=== PATIENT | male | born 1935 | race Caucasian/White ===

== ENCOUNTER 2018-02-22 08:24 | Emergency (ER) | payer OTHER ==
--- NOTE | 2018-02-22 08:39 | CPEKG ---
Heart Rate: 57 RR Interval: 1053 P-R Interval: 208 QRSD Interval: 140 QT Interval: 456 QTC Interval: 444 P [place]: 74 QRS [place]: -67 T Wave [place]: 19 EKG Severity - ABNORMAL ECG - EKG Impression: SINUS RHYTHM EKG Impression: RBBB AND LAFB Electronically Signed By: Shirlene Zhao 22-Feb-2018 14:47:10
[2018-02-22] MEDS ORDERED: ONDANSETRON 4 MG/2 ML VIAL IVP ONE (09:10)
[2018-02-22] MEDS ORDERED: NS 500 ML IV ONE (09:11)
[2018-02-22 09:14] LABS: PLATELET COUNT 231 10^3/uL (150-400)
--- NOTE | 2018-02-22 10:17 | EDPHY ---
H & P Time Seen by Provider: 02/22/18 08:58 HPI/ROS: CHIEF COMPLAINT: Bizarre feeling, nausea HISTORY OF PRESENT ILLNESS: 82-year-old male presents with a bizarre feeling and with nausea. This morning when he awoke, he had a bizarre feeling, like he was coming down with an illness, but he is unable to describe this feeling further. He also had slight nausea. He then developed sweatiness. The sweatiness has resolved. He continues to have some of this bizarre feeling. On repeated questioning, he is unable to describe this feeling further. He had a similar episode 9 months ago and was admitted to [facility]. No etiology found. He specifically denies symptoms such as dizziness, chest pain, shortness of breath, pain. REVIEW OF SYSTEMS: complete 10 point ROS negative except at noted in the HPI Past Medical/Surgical History: Hypertension Social History: Smoking Status: Never smoked Physical Exam: General Appearance: Alert, pleasant Eyes: Pupils equal and round, no conjunctival pallor or injection ENT, Mouth: Mucous membranes moist Neck: Normal inspection Respiratory: Lungs are clear to auscultation Cardiovascular: Regular rate and rhythm Gastrointestinal: Abdomen is soft and nontender Neurological: A&O, nonfocal, normal gait Skin: Warm and dry, no rash Extremities: Nontender, no pedal edema Psychiatric: Mood and affect normal Constitutional: Initial Vital Signs Temperature (C) 36.8 C 02/22/18 08:24 Heart Rate 59 L 02/22/18 08:24 Respiratory Rate 16 02/22/18 08:24 Blood Pressure 169/102 H 02/22/18 08:24 O2 Sat (%) 98 02/22/18 08:24 O2 Delivery Mode Room Air Allergies/Adverse Reactions: No Known Allergies Allergy (Unverified 02/22/18 08:37) Home Medications: Medication Instructions Recorded Atorvastatin Calcium 02/22/18 Lisinopril 02/22/18 Medical Decision Making - Diagnostics EKG Interpretation: terpreted by me reveals sinus rhythm, rate 57, right bundle branch block, no ST or T segment changes. Interpretation: Abnormal EKG ED Course/Re-evaluation: This patient presents with an unusual sensation that is apparently difficult to describe. Vital signs and physical exam are normal. Stat EKG reveals no evidence of ischemia or dysrhythmia. IV normal saline 500 mL given in case of dehydration causing symptoms. I observed him in the emergency department and upon discharge, he felt back to normal. Able to walk with a steady gait and was asymptomatic. The etiology of his symptoms is unclear. However, after careful consideration, I find no evidence of acute coronary syndrome, TIA, infection or other serious etiology. I feel that he is safe and stable for discharge. Differential Diagnosis: Altered mental status including but not limited to hypoglycemia, infectious process, electrolyte abnormality, head injury, CVA, and intoxicants. - Data Points Laboratory Results: Laboratory Results 02/22/18 08:05 02/22/18 08:05 Medications Given: Discontinued Medications Sodium Chloride (Ns) 500 mls @ 1,000 mls/hr IV EDNOW ONE PRN Reason: Protocol Stop: 02/22/18 09:40 Last Admin: 02/22/18 09:49 Dose: 500 mls Ondansetron HCl (Zofran) 4 mg IVP EDNOW ONE Stop: 02/22/18 09:11 Last Admin: 02/22/18 09:49 Dose: 4 mg Departure - Departure Disposition: Home, Routine, Self-Care Clinical Impression: Malaise Condition: Good Instructions: Weakness (ED), Lightheadedness (ED) Additional Instructions: Please return for worsening symptoms, any concerns. Referrals: MADELINE RIOS MD [Primary Care Provider] - 2-3 days without fail
[2018-02-22 11:35] VITALS: BP 132/80
== END 2018-02-22 11:40 | disposition home or self-care (01) ==
DX: R53.81 Other malaise (principal); I10 Essential (primary) hypertension; E86.9 Volume depletion, unspecified
CPT/HCPCS: 93005; 96361; 96374; 99284; J2405

== ENCOUNTER 2018-04-03 00:17 | Inpatient (IN) | payer OTHER, BC ==
--- NOTE | 2018-04-03 01:00 | CPEKG ---
Heart Rate: 55 RR Interval: 1091 P-R Interval: 200 QRSD Interval: 134 QT Interval: 468 QTC Interval: 448 P [place]: 70 QRS [place]: -62 T Wave [place]: 12 EKG Severity - ABNORMAL ECG - EKG Impression: SINUS RHYTHM EKG Impression: RBBB AND LAFB Electronically Signed By: Makayla Lopez 04-Apr-2018 05:09:10
--- NOTE | 2018-04-03 02:33 | EDPHY ---
H & P Stated Complaint: dizziness Time Seen by Provider: 04/03/18 02:30 HPI/ROS: HPI The patient presents with episodes of dizziness. Tonight, when he was going to bed, he felt off. He went to the living room and sat up until he was feeling better. Then he went to bed though believes he fainted several times and then called 911. He is brought in by ambulance from independent living facility. He has been checking his vital signs at home and knows that his heart rate has been as low as 35 and his blood pressures have been elevated as high as 190 systolic. He takes lisinopril since 2012 for hypertension. As he now recalls that he has had several of these episodes, 1 in February that brought him into the emergency department a normal workup, and 1 1 year ago. They are becoming more frequent. They are not associated with shortness of breath or chest pain. He does report over the last 1-2 months he has had swelling of his left leg.. REVIEW OF SYSTEMS Constitutional: No fever, no chills. Eyes: No discharge. ENT: No sore throat. Cardiovascular: No chest pain, no palpitations. Respiratory: No cough, no shortness of breath. Gastrointestinal: No abdominal pain, no vomiting. Genitourinary: No hematuria. Musculoskeletal: No back pain. Skin: No rashes. Neurological: No headache. 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 Garcia at [facility] Hx: Lives in independent living facility PHYSICAL General Appearance: Alert, no distress Eyes: Pupils equal and round no pallor or injection ENT, Mouth: Mucous membranes moist Respiratory: There are no retractions, lungs are clear to auscultation Cardiovascular: Regular rate and rhythm Gastrointestinal: Abdomen is soft and non-tender, no masses, bowel sounds normal Neurological: A&O, moves all extremities Skin: Warm and dry, no rashes Musculoskeletal: Neck is supple non tender Extremities: symmetrical, full range of motion , left lower extremity with pitting edema Psychiatric: Patient is oriented X 3, there is no agitation Source: Patient, EMS, Old records Exam Limitations: No limitations - Personal History Current Tetanus Diphtheria and Acellular Pertussis (TDAP): Yes - Medical/Surgical History Hx Asthma: No Hx Chronic Respiratory Disease: No Hx Diabetes: No Hx Cardiac Disease: No Hx Renal Disease: No Hx Cirrhosis: No Hx Alcoholism: No Hx HIV/AIDS: No Hx Splenectomy or Spleen Trauma: No Other PMH: HTN,Chol. high, dizziness - Social History Smoking Status: Former smoker Constitutional: Initial Vital Signs Temperature (C) 36.7 C 04/03/18 00:33 Heart Rate 54 L 04/03/18 00:33 Respiratory Rate 18 04/03/18 00:33 Blood Pressure 163/86 H 04/03/18 00:33 O2 Sat (%) 97 04/03/18 00:33 O2 Delivery Mode Room Air O2 (L/minute) 96 Allergies/Adverse Reactions: No Known Allergies Allergy (Unverified 04/03/18 00:31) Home Medications: Medication Instructions Recorded Atorvastatin Calcium 02/22/18 Lisinopril 02/22/18 Coumadin 04/03/18 Medical Decision Making - Diagnostics EKG Interpretation: EKG: Complete interpretation has been separately recorded in the [facility] archive. Summary impression: Right bundle-branch block and left anterior fascicular block Imaging Results: Chest x-ray two view shows no cardiomegaly, no infiltrate, interpreted by me, radiology interpretation is pending. Imaging: I viewed and interpreted images myself Differential Diagnosis: This is an 82-year-old man with history of hypertension and DVT on Coumadin who presents from home brought in by ambulance with episodes becoming more frequent involving malaise, dizziness, loss of consciousness. On the awake overnight monitor, he is noted to have intermittent bradycardia. He appears to be in a heart block and then returning to a normal sinus rhythm. I suspect this is the cause of his symptoms. In the emergency department, he was kept on telemetry monitoring. Labs were checked and were unremarkable including a troponin. Because of his left leg swelling DVT study was performed. DVT study was normal. He was admitted to the hospitalist and the case was discussed with Dr. Paz. - Data Points Laboratory Results: Laboratory Results 04/03/18 00:10 04/03/18 00:10 04/03/18 04/03/18 04/03/18 00:10 00:10 00:10 WBC RBC Hgb Hct MCV MCH MCHC RDW Plt Count PT 25.4 SEC H SEC (12.0-15.0) INR 2.31 H (0.83-1.16) Sodium Potassium Chloride Carbon Dioxide Anion Gap BUN Creatinine Estimated GFR Glucose Calcium Phosphorus 3.9 mg/dL mg/dL (2.5-4.5) Magnesium 2.2 mg/dL mg/dL (1.6-2.3) Troponin I < 0.012 ng/mL ng/mL (0.000-0.034) NT-Pro-B Natriuret Pep 151 pg/mL pg/mL (0-450) 04/03/18 04/03/18 00:10 00:10 WBC 6.38 10^3/uL 10^3/uL (3.80-9.50) RBC 4.43 10^6/uL 10^6/uL (4.40-6.38) Hgb 13.8 g/dL g/dL (13.7-17.5) Hct 40.3 % % (40.0-51.0) MCV 91.0 fL fL (81.5-99.8) MCH 31.2 pg pg (27.9-34.1) MCHC 34.2 g/dL g/dL (32.4-36.7) RDW 13.6 % % (11.5-15.2) Plt Count 214 10^3/uL 10^3/uL (150-400) PT INR Sodium 144 mEq/L mEq/L (135-145) Potassium 4.0 mEq/L mEq/L (3.3-5.0) Chloride 108 mEq/L mEq/L (97-110) Carbon Dioxide 26 mEq/l mEq/l (22-31) Anion Gap 10 mEq/L mEq/L (8-16) BUN 18 mg/dL mg/dL (7-23) Creatinine 1.1 mg/dL mg/dL (0.7-1.3) Estimated GFR > 60 Glucose 90 mg/dL mg/dL (70-100) Calcium 9.3 mg/dL mg/dL (8.5-10.4) Phosphorus Magnesium Troponin I NT-Pro-B Natriuret Pep Medications Given: Sodium Chloride (Ns) 1,000 mls @ 75 mls/hr IV CONT CARMELINA Stop: 09/30/18 03:14 Last Admin: 04/03/18 04:55 Dose: 1,000 mls Cefazolin Sodium/Dextrose (Ancef 2 Gm) 100 mls @ 200 mls/hr IV ONCALL ONE PRN Reason: Protocol Stop: 04/03/18 08:11 Last Admin: 04/03/18 08:00 Dose: Not Given Lorazepam (Ativan Injection) 0.5 mg IVP Q4HRS PRN PRN Reason: Anxiety, Unable to Take PO Stop: 09/30/18 06:32 Last Admin: 04/03/18 06:42 Dose: 0.5 mg Discontinued Medications Bacitracin (Bacitracin 1000 Ml Irrigation) 50,000 units IRR ONCALL ONE Stop: 04/03/18 07:43 Last Admin: 04/03/18 08:00 Dose: Not Given Phytonadione 10 mg/ Sodium (Chloride) 51 mls @ 204 mls/hr IV ONCE ONE Stop: 04/03/18 05:07 Last Admin: 04/03/18 05:24 Dose: 51 mls Sodium Chloride (Ns) 1,000 mls @ 0 mls/hr IV ONCALL ONE PRN Reason: As Directed Stop: 04/03/18 07:15 Last Admin: 04/03/18 07:55 Dose: Not Given Sodium Chloride (Ns) 1,000 mls @ 0 mls/hr IV ONCALL ONE PRN Reason: As Directed Stop: 04/03/18 07:43 Last Admin: 04/03/18 08:00 Dose: Not Given Midazolam HCl (Versed) 2 mg IVP ONCE ONE Stop: 04/03/18 07:01 Last Admin: 04/03/18 07:55 Dose: Not Given Departure - Departure Disposition: [facility] Clinical Impression: Arrhythmia, Dizziness Condition: Fair
[2018-04-03 02:48] LABS: INR 2.31 (0.83-1.16); PROTIME(PATIENT) 25.4 SEC (12.0-15.0)
[2018-04-03] MEDS ORDERED: ONDANSETRON 4 MG/2 ML VIAL IVP PRN (03:09)
[2018-04-03] MEDS ORDERED: HYDROCODONE/APAP 5/325 TAB PO PRN (03:09)
[2018-04-03] MEDS ORDERED: NS 1,000 ML IV SCH (03:15)
[2018-04-03] MEDS ORDERED: PHYTONADIONE 10 MG in NS 50 ML IV ONE (04:53)
[2018-04-03] MEDS ORDERED: ATROPINE SULFATE 1 MG/10 ML SYR IVP PRN (05:01)
[2018-04-03] MEDS ORDERED: D50W 25 GM/50 ML VIAL IVP PRN (05:21)
[2018-04-03 05:55] LABS: PLATELET COUNT 208 10^3/uL (150-400)
[2018-04-03] MEDS ORDERED: LORazepam 2 MG/ML INJ IVP PRN (06:33)
[2018-04-03] MEDS ORDERED: MIDAZOLAM 2 MG/2 ML VIAL ONE ×2 (06:43→07:37)
--- NOTE | 2018-04-03 06:43 | GHP ---
[f rep st] HISTORY AND PHYSICAL DATE OF ADMISSION: 04/03/2018 SOURCE: Patient provides history, appears reliable. EMR was reviewed and case discussed with ED pro vider as well as the patient's daughter and Dr. Junior with Cardiology. CHIEF COMPLAINT: Syncope. HISTORY OF PRESENT ILLNESS: This is a very pleasant 82-year-old gentleman with a past medical histor y significant for HTN, HLD, recurrent DVT in 2011 and 2015, on chronic anticoagulation with Coumadin, who presents to the emergency department today from his independent living apartment with complaints of syncopal and presyncopal episodes. The patient reports that he was trying to go to sleep and he felt significantly lightheaded and reports that he fainted. He has been monitoring his blood pressur es and his heart rates on an outpatient basis, and has noted a heart rate as low as the 30s and blood pressures systolically as high as 190s. He denies any associated chest pain, palpitations, or short ness of breath. He does feel some subjective fevers and flushing and chills. He was in the emergenc y department in February 2018. The patient has been experiencing some presyncopal type episodes and jus t recently underwent outpatient cardiac monitoring, which the patient reports he was due to follow up with PCP in 2 days for results. He is typically followed by Dr. Garcia at [facility] in [place]. The patient denies any history of known CHF. In the emergency department, the patient did have intermittent episodes of bradycardia into the 30s, with what appeared to be second-degree block on the court recording monitor. Shortly after arrival to the PCU floor, the patient had intermittent drops in heart rate to the 30s from the 50s with symptoms. A dditionally, patient has had a few episodes of third-degree heart block and 1 witnessed episode of se izure activity and hypoxia during a 12-second pause. The patient currently denies any chest pain, sh ortness of breath, palpitations, but currently awake, alert, and oriented x3. His daughter, who live s locally, has been notified. REVIEW OF SYSTEMS: Negative except as noted above. ALLERGIES: No known drug allergies. HOME MEDICATIONS: Coumadin, atorvastatin, lisinopril, and 81 mg aspirin. PAST MEDICAL HISTORY: Significant for HTN, HLD, recurrent DVT in 2011 and 2016 in left lower extremi ty, currently on Coumadin. PAST SURGICAL HISTORY: Significant for appendectomy, hemorrhoidectomy, and bilateral cataract extrac tion with lens placement. FAMILY HISTORY: Mother and father with history of atherosclerosis. He has 3 children who are all he althy. SOCIAL HISTORY: Patient lives in independent living apartment at [place]. He does not smoke or ut ilize any illicit drugs or marijuana. He quit smoking in 1967. He drinks a glass of wine every othe r weekend. COR STATUS: Limited. Discussed with the patient while RN at bedside. The patient does not want any heroic measures and when clarified he does not want CPR. He does not want to be intubated. He is a menable to pacemaker pads and pacemaker placement as well as medical resuscitation, but no compressio ns. PHYSICAL EXAMINATION: VITAL SIGNS: Upon arrival to the emergency department, blood pressure 163/86, heart rate 54, respiratory rate 18, O2 saturation 97% on room air, with a temperature of 36.7. Curr ent vitals available, blood pressure 175/80, heart rate 33, variable to 55, O2 saturation 94% on room air, with a respiratory rate of 19, temperature 36.6. GENERAL: No acute distress. Pleasant, elder ly, adult gentleman is resting comfortably in bed. Appears slightly younger than stated age. HEAD: Normocephalic, atraumatic. EYES: Extraocular muscles are intact. Pupils equal, round, react to li ght bilaterally and symmetric. No scleral icterus or conjunctival injection. ENT: Mucous membranes appear moist. No oropharyngeal erythema or exudates. No nasal discharge. NECK: Supple, trachea m idline. CV: Bradycardic. No murmurs, rubs, or gallops appreciated. RESPIRATORY: Unlabored breath ing. Lungs are clear to auscultation bilaterally. No wheezes, rales, or rhonchi. ABDOMEN: Positive bowel sounds. Soft, nontender to palpation. No rebound, guarding, or masses appreciated. : No suprapubic tenderness to palpation. No Tello catheter in place. EXTREMITIES: Patient with 1 to 2+ pitting edema on the left greater than the right lower extremity, trace on the right. No calf tender ness. Patient with 1+ pedal pulses bilaterally and symmetric. NEURO: Grossly nonfocal. No facial drooping. Patient awake, alert, and oriented x3. PSYCH: Thought process, content, and questions ar e all appropriate. During the interview, the patient did have an episode of symptomatic bradycardia, where he had eviden ce of tonic-clonic activity and was unresponsive for approximately [address] recording monitor does show that patient went into complete heart block for about 12 seconds. Patient's bedsi de O2 sat also decreased down to 85% with rapid resolution, along with patient's mentation. LABORATORY STUDIES: WBC 6.3, H and H 13.8 and 40.3, MCV of 91.0, platelet count of 214. PT is 25.4, INR is 2.31. Sodium 144, potassium 4.0, chloride 108, CO2 is 26, anion gap 10, BUN 18, creatinine i s 1.1, GFR greater than 60, glucose 90, calcium 9.3. Troponin negative. BTNP 151, phosphorus 3.9, m agnesium 2.2. Heart rate 55, sinus rhythm, right bundle branch block and left anterior fascicular block. Telemetry monitoring showing that patient did have some episodes of second-degree heart block. Telemetry stri p in PCU has been showing intermittent episodes of third-degree heart block. Left venous duplex is showing wall thickening on the long femoral vein consistent with prior DVT and no acute thrombus. ASSESSMENT AND PLAN: A very pleasant 82-year-old gentleman who presents with complaints of syncopal and presyncopal episode at home. 1. Heart block. Patient has been with significant bradycardia down to the 30s as well as up to 12 s econds of complete heart block, symptomatic. He will have pacer pads put in place. I did discuss wi th the patient regarding his advanced directives and wishes. He does not want for cardiopulmonary re suscitation or intubation, but is amenable to consideration for pacer external and permanent as well. I contacted Cardiology, Dr. Junior, and discussed the case. She has requested the patient remain not jaya by mouth, receive vitamin K for his history of Coumadin therapy for deep vein thrombosis. Also discussed with her there is low suspicion for a pulmonary embolism. At this point, patient has been completely asymptomatic and has been therapeutic and compliant with his anticoagulation. He has not complained of any dyspnea or had any hypoxia, except for following an episode of pause and seizure-ty pe activity while I was at bedside. If patient continues to have a repeat of episodes, will plan to put in a temporary pacer. Otherwise, hopefully patient can have a permanent pacer placed early this morning with Dr. Batista. I did contact patient's daughter, Too, who will be coming to the [facility] shortly. I did review with her also patient's advanced directive wishes. 2. Benign essential hypertension. Blood pressures are slightly elevated, but at this time will not treat. 3. Chronic medical issues: a. Hyperlipidemia. Holding statin while nothing by mouth. b. History of recurrent deep vein thrombosis. Patient receiving vitamin K to reverse his INR at thi s time. Last deep vein thrombosis known was remotely in 2016. Patient has been therapeutic and comp liant with medications. 4. Fluid, electrolytes, nutrition: Patient received some gentle intravenous fluid hydration. Elect rolyte monitoring and replacement if needed. Nothing by mouth status as above. 5. COR status is limited. No cardiopulmonary resuscitation, no intubation. Patient amenable to med ications and pacing. 6. Prophylaxis: Sequential compression devices, reversing Coumadin therapy as noted above, but INR is therapeutic. DISPOSITION: Patient admitted to observation status initially, which we will now change to inpatient status given acuity of patient's cardiac condition. Patient will be transferred to the ICU for clos e cardiac monitoring should external pacing be required. /[id number]/MODL
[2018-04-03] MEDS ORDERED: MIDAZOLAM 2 MG/2 ML VIAL IVP ONE (07:00)
[2018-04-03] MEDS ORDERED: NS 1,000 ML IV ONE ×2 (07:14→07:42)
[2018-04-03] MEDS ORDERED: BACITRACIN IRRIGATION/NS 50,000 UNITS/1,000 ML BTL IRR ONE ×2 (07:14→07:42)
--- NOTE | 2018-04-03 07:35 | PDHPUP ---
History & Physical Update H&P update statement: This history and physical update is based on an assessment of the patient which was completed after admission or registration (within 24 hours), but prior to the surgery/procedure. H&P update: H&P reviewed & patient examined, no change in patient's condition since H&P completed
[2018-04-03] MEDS ORDERED: IOPAMIDOL (ISOVUE-300) 50 ML VIAL ONE (07:36)
--- NOTE | 2018-04-03 07:36 | PDPROPOC ---
Sedation Plan of Care Sedation Plan of Care: vital signs stable, mental status noted, patient educated of risks, benefits, alternatives, patient can tolerate sedation ASA Classification: ASA 3 Planned drugs: fentanyl, midazolam Mallampati Score: Class 3 Mallampati Reference Image: Patient passed 3-3-2 rule?: Yes
[2018-04-03] MEDS ORDERED: fentaNYL 100 MCG/2 ML INJ ONE (07:37)
[2018-04-03] MEDS ORDERED: BUPIVACAINE 0.5% 30 ML SDV ONE (07:37)
[2018-04-03] MEDS ORDERED: LIDOCAINE 1% 300 MG/30 ML SDV ONE (07:37)
[2018-04-03] MEDS ORDERED: LIDO/EPI 1% **for epidural** 30 ML SDV ONE (07:37)
[2018-04-03] MEDS ORDERED: ceFAZolin 2 GM/DEXTROSE 100 ML IV ONE (07:42)
--- NOTE | 2018-04-03 09:49 | CPEKG ---
Heart Rate: 60 RR Interval: 1000 P-R Interval: 136 QRSD Interval: 130 QT Interval: 448 QTC Interval: 448 QRS [place]: -53 T Wave [place]: 10 EKG Severity - ABNORMAL ECG - EKG Impression: ATRIAL-PACED RHYTHM EKG Impression: RBBB AND LAFB Electronically Signed By: Chavez Ramos 03-Apr-2018 11:45:33
--- NOTE | 2018-04-03 10:10 | GCON ---
[f rep st] CONSULTATION CARDIOLOGY CONSULT DATE OF CONSULTATION: 04/03/2018 PRIMARY SHEEP CLIPPER: Dr. Mary Garcia PRIMARY CARE: Dr. Carly Stringer CHIEF COMPLAINT: Syncope and complete heart block. HISTORY OF PRESENT ILLNESS: We are asked by Dr. Paz to visit with the patient. 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 He also has dyslipidemia. In February of this year, he was evaluated in the ER with an episode of syncope. In February, he was evalu ated in the ER with presyncope and malaise. No specific dysrhythmia or other cause of his symptoms w as found. He also reports that, several months prior to this, he had syncope and was evaluated at [facility]. Yesterday, at 11 p.m., he was lying in bed and felt quite poorly. He knew that "some thing was going to happen" and then he apparently lost consciousness. Unclear how long, as he lives alone. When he came to, he called 911. He was brought to the ER and found to have periods of comple te heart block. Therefore, he was admitted initially to the PCU and ultimately transferred to the [facility] when he required transcutaneous pacing early this morning. Upon my evaluation, he reports feeling a little bit better and has not had recurrent syncope. He is on a backup rate of 40 with intermittent ventricular pacing. He has not had angina. He does report intermittent dyspnea. He has also noticed leg swelling over the past 2 or 3 months. He does see a c ardiologist and denies any history of diagnosed arrhythmia. He has no known coronary artery disease, no history of heart failure, and has never had a stroke. REVIEW OF SYSTEMS: A full 10-point review of systems is performed and is negative except that which is outlined in the History of Present Illness. ALLERGIES: No known drug allergies. PAST MEDICAL HISTORY: 1. Hypertension. 2. Dyslipidemia. 3. Complete heart block, which is a new diagnosis. 4. History of DVT that was recurrent and initially related to trauma. He has been on Coumadin thera py for several years. 5. Status post appendectomy. OUTPATIENT MEDICATIONS: Lisinopril, aspirin, atorvastatin, and Coumadin. He is not on any rodolfo blo cking agents. SOCIAL HISTORY: The patient lives alone. 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 He drinks 1 glass of wine weekl y and does not smoke cigarettes. FAMILY HISTORY: Not applicable to this current case. PHYSICAL EXAMINATION: VITAL SIGNS: Blood pressure is 144/55, heart rate has been ranging from 33 to 59 with intermittent ventricular pacing. He is afebrile. GENERAL: Well-appearing older male in no acute distress. CARDIOVASCULAR: JVP less than 10. Carotids equal and 2+ bilaterally without bruit . Bradycardic rate without murmur, rub, or gallop. LUNGS: Clear anteriorly and laterally without w heezes, rhonchi, or rales. ABDOMEN: Soft, nontender, and nondistended, without bruits, masses, or h epatosplenomegaly. EXTREMITIES: Warm and well perfused. He does have 1+ edema of the left ankle, a nd trace right ankle edema. NEURO: Alert and oriented x3, without gross focal neurological deficits . Appropriate mood and affect. DATA: A CBC is normal. INR 2.3. Basic metabolic panel notable for creatinine of 1.1, glucose of 10 4. Troponin negative x2. BNP 151. TSH is normal at 4.06. EKG reviewed by me: Sinus rhythm with right bundle branch block and left anterior fascicular block. Chest x-ray reviewed by me: No acute cardiopulmonary process. Telemetry strips reviewed by me show periods of complete heart block lasting between 5 and 10 seconds . ASSESSMENT AND PLAN: 82-year-old male with past history of hypertension, dyslipidemia, and recurrent deep vein thrombosis. He presents with syncope while lying down and has documented complete heart b lock. Clearly, this is a class 1 indication for permanent pacemaker placement. At the time of my ev aluation, it is approximately 6:30 a.m. and he is hemodynamically stable and relatively comfortable w ith intermittent backup pacing on the transcutaneous pacer. He has been given vitamin K. I have dis cussed the case with Dr. Chavez Ramos, who is on his way to the hospital to place a permanent pacemak er. Per Dr. Ramos, the patient does not require FFP at this time. The risks, benefits, and alternatives of pacemaker placement were briefly reviewed with the patient a nd his daughter, who was at the bedside. They agreed to proceed. 1. Complete heart block: Pacemaker as above. 2. Hypertension: Resume usual outpatient medications. 3. History of recurrent DVT. He did have a lower extremity ultrasound in the ER. Results are pendi ng. Resume Coumadin when feasible post pacemaker. 4. Dyslipidemia: Continue statin. Thank you for allowing us to participate in the patient's care. We will follow with you. /[id number]/MODL
--- NOTE | 2018-04-03 13:21 | HOSPPROG ---
Hospitalist Progress Note Assessment/Plan: stable w pacer pulse 60's Subjective: now w pacer Objective: Vital Signs Temp Pulse Resp BP Pulse Ox 36.4 C 60 16 150/82 H 94 04/03/18 08:00 04/03/18 13:03 04/03/18 13:03 04/03/18 13:03 04/03/18 13:03 Laboratory Results 04/03/18 05:45 04/03/18 05:45 04/02/18 04/03/18 04/04/18 05:59 05:59 05:59 Intake Total 0 Output Total 1150 Balance 0 -1150 PT 25.4 SEC (12.0-15.0) H 04/03/18 00:10 INR 2.31 (0.83-1.16) H 04/03/18 00:10 ICD10 Worksheet Patient Problems: Problems Problem Status Onset Arrhythmia Acute Dizziness Acute
--- NOTE | 2018-04-03 14:00 | ASMTCASEMG ---
Living Arrangements What is your living Answers: Alone arrangement? Who do you live with? Type Of Residence What kind of residence do Answers: Apartment you live in? Discharge Plan Comments Coordination Status Comments Notes: Patient is an 82yo single male who lives in [facility] and was admitted for heart block, significant bradycardia, hypertension, hyperlipidemia, chronic medical issues. No therapies have been ordered at this time. CM will follow for any d/c needs. Date Signed: 04/03/2018 01:59 PM Electronically Signed By:Kimberlee Garcia LCSW
--- NOTE | 2018-04-03 14:06 | PDMN ---
Medical Necessity Medical necessity: Pt meets IP criteria per MD; est los >2 mn for eval/tx of syncopal episodes r/t significant bradycardia & complete heart block; admit for further workup, IVFs & Cardiology consult/intervention w/possible transfer to ICU for close cardiac monitoring & external pacing; comorbid advanced age, HTN, recent DVT; per H&P & order 04/03/18
[2018-04-03] MEDS ORDERED: TRIAMCINOLONE 0.1% 15 GM CRTUBE TP PRN (14:21)
[2018-04-03] MEDS: ACETAMINOPHEN 325 MG TAB PO PRN (17:01)
[2018-04-03] MEDS ORDERED: ATORVASTATIN CALCIUM 10 MG TAB PO SCH (21:00)
[2018-04-03] MEDS ORDERED: LISINOPRIL 10 MG TAB PO SCH (21:00)
[2018-04-03] MEDS ORDERED: CHOLECALCIFEROL VIT D3 1,000 UNITS TAB PO SCH (21:00)
[2018-04-04 05:02] LABS: PLATELET COUNT 200 10^3/uL (150-400)
[2018-04-04 05:11] LABS: INR 1.37 (0.83-1.16)
--- NOTE | 2018-04-04 08:49 | CPEKG ---
Heart Rate: 108 RR Interval: 556 QRSD Interval: 150 QT Interval: 360 QTC Interval: 483 P [place]: 0 QRS [place]: 236 T Wave [place]: 0 EKG Severity - ABNORMAL ECG - EKG Impression: APaced VPaced rhythm EKG Impression: PMT with termination Electronically Signed By: Chavez Ramos 04-Apr-2018 11:37:26
[2018-04-04] MEDS: ACETAMINOPHEN 325 MG TAB PO PRN (09:29)
--- NOTE | 2018-04-04 09:34 | PDCARPN ---
Cardiology Progress Note Assessment/Plan: Assessment/Plan: 82-year-old male with a history of hypertension, dyslipidemia , and recurrent DVT on chronic Coumadin therapy. He was admitted yesterday with syncope and found to have complete heart block. He underwent urgent dual- chamber [place] pacemaker placement with Dr. Chavez Ramos yesterday morning. 1. Complete heart block now status post pacemaker: Device interrogation is pending. Chest x-ray shows normal lead placement and no pneumothorax. Pacer precautions. Follow-up in 1 week for wound check and device interrogation. 2. History of DVT that was recurrence: Restart Coumadin this evening. Bleeding precautions reviewed. 3. Hypertension: Blood pressures are higher yesterday before immediately after his procedure but are improved this morning. Continue his outpatient medical therapy. 4. Dyslipidemia: Continue statin therapy. If his device check shows normal function, he may be discharged from a cardiac standpoint with follow-up in our office as detailed above. 04/04/18 09:37 Subjective: He feels much better since his pacemaker implant. He does have some minimal left axillary pain. No anginal chest pain. No dyspnea. He reports that his lower extremity edema is improved. Reviewed/Discussed With: multidisciplinary team Objective: Vital Signs (8 Hrs) Temp Pulse Resp BP Pulse Ox 04/04/18 07:29 36.7 C 65 12 136/92 H 91 L 04/04/18 04:00 36.7 C 68 18 154/88 H 92 Intake/Output (24 Hrs) 04/03/18 04/04/18 04/05/18 05:59 05:59 05:59 Intake Total 0 2160 Output Total 2525 Balance 0 -365 Intake: Oral (ml) 0 500 IV Intake (ml) 900 IV Infused (ml) 0 760 Ns 1,000 ml @ 75 mls/hr 600 IV CONT CARMELINA Rx#: [id number] ceFAZolin 1 GM/DEXTROSE 60 50 ml @ 200 mls/hr IV Q8HRS CARMELINA Rx#:[id number] ceFAZolin 2 GM/DEXTROSE 100 100 ml @ 200 mls/hr IV ONCALL ONE Rx#:[id number] Output: Urine (ml) 2525 Urinal 2525 Other: Weight 86.8 kg 86.2 kg 85.6 kg Number of Voids 1 Urinal 1 No acute distress. JVP less than 10. Regular rate and rhythm without murmur or gallop Lungs clear about without wheeze rhonchi rales Improved and now trace bilateral lower extremity edema Pressure dressing removed. Pacemaker dressing is clean dry and intact. Minimal ecchymoses Chest x-ray dated 04/04/2018 reviewed: Normal dual-chamber pacemaker lead placement. No pneumothorax. Small right pleural effusion. Result Diagrams: 04/04/18 04:22 04/04/18 04:22 Cardiac Labs: Cardiac Lab Results (72 Hrs) 04/03/18 05:45 Troponin I 0.016 EKG: Reviewed: AV pacing. Telemetry: A paced V sense. AV pace. 1 short run of tachycardia that seems to be V pacing. Unclear whether this is pacemaker mediated tachycardia. ICD10 Worksheet Patient Problems: Problems Problem Status Onset Arrhythmia Acute Dizziness Acute
--- NOTE | 2018-04-04 10:13 | HOSPPROG ---
Hospitalist Progress Note Assessment/Plan: home today see dc summary Subjective: pacer capturing. cxr OK Objective: Vital Signs Temp Pulse Resp BP Pulse Ox 36.7 C 65 12 136/92 H 91 L 04/04/18 07:29 04/04/18 07:29 04/04/18 07:29 04/04/18 07:29 04/04/18 07:29 Laboratory Results 04/04/18 04:22 04/04/18 04:22 04/03/18 04/04/18 04/05/18 05:59 05:59 05:59 Intake Total 0 2160 Output Total 2525 Balance 0 -365 PT 17.0 SEC (12.0-15.0) H 04/04/18 04:22 INR 1.37 (0.83-1.16) H 04/04/18 04:22 - Physical Exam Constitutional: no apparent distress, appears nourished Eyes: PERRL, anicteric sclera Ears, Nose, Mouth, Throat: moist mucous membranes, hearing normal Cardiovascular: regular rate and rhythym, no murmur, rub, or gallop Respiratory: no respiratory distress, no rales or rhonchi Gastrointestinal: normoactive bowel sounds, soft, non-tender abdomen Genitourinary: No mcqueen in urethra Skin: warm, normal color Neurologic: AAOx3 ICD10 Worksheet Patient Problems: Problems Problem Status Onset Arrhythmia Acute Dizziness Acute
--- NOTE | 2018-04-04 10:35 | GDS ---
[f rep st] DISCHARGE SUMMARY DISCHARGE DIAGNOSIS: Symptomatic bradycardia with third-degree heart block status post pacer. Please see admission history and physical by Dr. Jo Ann Paz. The patient presented with lightheade dness, dizziness. He was found to be bradycardic with complete heart block. The patient underwent p acemaker placement without complication. His pacemaker was interrogated and found to be capturing. He appears to be pacer dependent. Followup chest x-ray is without pneumothorax. He is discharged ho tx. He is going to restart his warfarin today and his indication for warfarin is 2 DVT's. His last was greater than a year ago. He is going to restart aspirin 3 days after discharge. /[id number]/MODL
--- NOTE | 2018-04-04 10:37 | ASDISCHSUM ---
Discharge Information Plan Status:Home with No Needs Medically Cleared to Leave:04/04/2018 Discharge Date:04/04/2018 CM D/C Disposition:Home, Routine, Self-Care ADT D/C Disposition: Projected Discharge Date:04/04/2018 11:00 AM Transportation at D/C: Discharge Delay Reason: Follow-Up Date:04/04/2018 11:00 AM Discharge Slot: Final Diagnosis: Placement Information Referral Type:Assisted Living Residence Referral ID:[id number] Provider Name:[facility] Address 1:[address] Address 2: City:[place] Selection Factors: State:[place] Patient Contact Information Contact Name:ANTHONY Relationship:Other Address: Work Phone: City:[place] Alternate Phone: State/[facility] Code:[place] Email: Financial Information Financial Class:Medicare Primary Plan Desc:MEDICARE INPATIENT Primary Plan Number:[id number] Secondary Plan Desc: OUT OF [facility] Secondary Plan Number:[id number] Assessment Information LACE LACE Length of stay for Answers: 1 day current admission Acuity / Level of Answers: Yes Care: Did the patient have an inpatient admission? Comorbidities - select Answers: Other Notes: HTN all that apply # of Emergency department Answers: 1-2 visits in the last 6 months Score: 6 Date Signed: 04/04/2018 10:35 AM Electronically Signed By:Olga Dave RN [facility] Initial CM Assessment Living Arrangements What is your living Answers: Alone arrangement? Who do you live with? Type Of Residence What kind of residence do Answers: Apartment you live in? Discharge Plan Comments Coordination Status Comments Notes: Patient is an 82yo single male who lives in [facility] and was admitted for heart block, significant bradycardia, hypertension, hyperlipidemia, chronic medical issues. No therapies have been ordered at this time. CM will follow for any d/c needs. Date Signed: 04/03/2018 01:59 PM Electronically Signed By:Kimberlee Garcia LCSW Case Management Discharge Plan Note Case Management Discharge Discharge Order Complete? Answers: Yes Patient to Obtain Answers: Other Notes: [place] Medications Faxed Final Orders Answers: Yes Agency/Facility Transfer Answers: Yes Report Printed & Faxed to Receiving Agency Discharge Comments Notes: 04/04/2018 Case Management Note Pt to d/c independent back to [facility]. Faxed orders to [facility]. Date Signed: 04/04/2018 10:36 AM Electronically Signed By:Olga Dave RN Intervention Information
[2018-04-04 11:18] VITALS: BP 155/91
--- NOTE | 2018-04-04 12:47 | EPPROC ---
Electrophysiology Procedure Note: PROCEDURE PERFORMED: 1. Implantation of an A/V Pacemaker 3. Fluoroscopy INDICATION: This is a 82 yr old with complete heart block with which he was symptomatic. In view of this it was decided to implant a dual chamber pacemaker. PROCEDURE NOTE: Patient presented to the cardiac catheterization laboratory in a fasting, post absorptive state . EP RN administered sedation. The left infraclavicular area was prepped and draped in the usual sterile fashion. Lidocaine plus bupivacaine was used for local anesthesia. Using a combination of blunt and sharp dissection and electrocautery, the dissection was carried down to the prepectoral fascia. All bleeding was controlled with electrocautery. Fluoroscopy was utilized during the entire procedure for venous access and placement of the leads. Using usual technique, left cephalic vein was accessed ad two guidewires were placed. Placement of the guidewires into the venous system was confirmed by low -pressure blood return and also by visualizing the guidewires advancing into the inferior vena cava. Two #7 Cuban sheaths were advanced under fluoroscopic guidance over the guidewire. An active fixation ventricular lead was advanced into the right ventricular apex and screwed in place. An active fixation atrial lead was advanced into the right atrial appendage and screwed in place. The peel away sheaths were removed. Pacing thresholds, sensing parameters and lead impedances were measured. There was no diaphragmatic stimulation at maximum output. The leads were sutured to the prepectoral fascia with 3 nonabsorbable sutures each. Pocket was created and flushed using antibiotic solution. The pocket was again inspected for any bleeding. The leads were attached to the pacemaker securely. The pacemaker was inserted into the pocket and secured in place with a nonabsorbable suture. Fluoroscopy was performed in MERINO and JAPANESE planes to verify right-sided placement of the leads. Also fluoroscopy of the pacemaker pocket was performed. The pacemaker pocket was closed in 3 layers with absorbable monocryl sutures. Appropriate dressing was applied. The patient left the cardiac catheterization laboratory in stable condition. Serial Numbers: 1. Device: St Terrence Assurity MRI SN [id number] 2. Atrial Lead: [employer] [place] Tendril MRI Sn [id number] 3. Ventricular Lead: [employer] [place] Tendril MRI SN [id number] Stimulation Thresholds & Impedance Measurements: 1. Atrial Lead 3mv, 0.90.5ms, 452Ohms 2. Ventricular Lead 13.1mV, 0.6@0.5ms, 380Ohms Evans Pacing Parameters 1. Pacing mode: DDDR 2. Lower rate: 60ppm 3. Upper tracking rate: 130 ppm 4. Upper sensor rate: 130 ppm Patient Problems: Problems Problem Status Onset Arrhythmia Acute Dizziness Acute
[2018-04-04] MEDS ORDERED: WARFARIN SODIUM 5 MG TAB PO SCH (21:00)
[2018-04-07] MEDS ORDERED: WARFARIN SODIUM 2.5 MG TAB PO SCH (21:00)
== END 2018-04-04 13:15 | disposition home or self-care (01) | DRG 244 ==
LOC: EDUNIT# → OBSVTOIN 03:09 → F2W 03:49 → F2N 06:01 → F2W 13:46
PROVIDERS: ADMIT Family Medicine; ATTEND Family Medicine
PROC: 02HK3JZ Insertion of Pacemaker Lead into Right Ventricle, Percutaneous Approach (ICD-10-PCS; principal; 2018-04-04)
PROC: 02H63JZ Insertion of Pacemaker Lead into Right Atrium, Percutaneous Approach (ICD-10-PCS; principal; 2018-04-04)
PROC: 0JH606Z Insertion of Pacemaker, Dual Chamber into Chest Subcutaneous Tissue and Fascia, Open Approach (ICD-10-PCS; principal; 2018-04-04)
DX: I44.2 Atrioventricular block, complete (principal); I49.8 Other specified cardiac arrhythmias; I10 Essential (primary) hypertension; E78.5 Hyperlipidemia, unspecified; Z86.718 Personal history of other venous thrombosis and embolism; Z87.891 Personal history of nicotine dependence; Z79.01 Long term (current) use of anticoagulants
CPT/HCPCS: C1769; C1785; C1898; J0690; J2060; J2250; J3010; J3430; Q9967

== ENCOUNTER 2018-04-17 18:54 | Inpatient (IN) | payer OTHER, BC ==
--- NOTE | 2018-04-17 19:31 | CPEKG ---
Heart Rate: 71 RR Interval: 845 P-R Interval: 196 QRSD Interval: 134 QT Interval: 400 QTC Interval: 435 P [place]: 73 QRS [place]: -55 T Wave [place]: -25 EKG Severity - ABNORMAL ECG - EKG Impression: SINUS RHYTHM EKG Impression: RBBB AND LAFB Electronically Signed By: Horace Monroe 17-Apr-2018 20:25:45
[2018-04-17 20:06] LABS: PLATELET COUNT 242 10^3/uL (150-400)
[2018-04-17] MEDS ORDERED: NS 500 ML IV ONE (21:35)
[2018-04-17] MEDS ORDERED: IOPAMIDOL (ISOVUE 370) 100 ML BTL IV ONE (21:38)
[2018-04-17] MEDS ORDERED: ACETAMINOPHEN 325 MG TAB PO PRN (21:58)
[2018-04-17] MEDS ORDERED: ONDANSETRON 4 MG/2 ML VIAL IVP PRN (21:58)
[2018-04-17] MEDS ORDERED: ONDANSETRON DISINTEGRATING 4 MG TAB PO PRN (21:58)
[2018-04-17] MEDS ORDERED: oxyCODONE IR 5 MG TAB PO PRN (21:58)
--- NOTE | 2018-04-17 22:21 | EDPHY ---
H & P Time Seen by Provider: 04/17/18 20:03 HPI/ROS: Chief complaint. Chest pain HPI. 82-year-old male recently in the hospital for third-degree heart block and pacemaker here with chest discomfort for 2 days. He notes soreness to the left chest for 2 days. More sore today. Worse with deep breathing though no shortness of breath. Symptoms are not worse with exertion. He has some cough but no fever. Patient was admitted about 2 weeks ago for bradycardia in third- degree heart block and had a pacer placed on April 04. He has leg swelling but no real pain. Patient is taking Coumadin. No radiation of his chest discomfort ROS Constitutional. no fever/chills, no weakness Eyes. no problems with vision ENT. no sore throat, no nasal drainage Cardiovascular. Left chest pain Respiratory. no shortness of breath, no cough Abdominal. no abdominal pain, no nausea/vomiting, no diarrhea . no problems urinating MS. no calf pain/swelling, no neck/back pain, no joint pain Skin. no rash Lymph. no swollen glands Neuro. no headache, no dizziness, no difficulty walking or with speech Past Medical/Surgical History: Past medical history is significant for complete heart block with pacemaker, hypertension, dyslipidemia Social History: , nonsmoker, no alcohol Smoking Status: Former smoker Physical Exam: General Appearance: Alert well-developed male mild distress vitals are stable Eyes: Pupils equal and round no pallor or injection. ENT, Mouth: Mucous membranes are moist. Respiratory: There are no retractions, lungs are clear to auscultation. Cardiovascular: Regular rate and rhythm. Gastrointestinal: Abdomen is soft and nontender, no masses, bowel sounds normal. Neurological: Awake and alert, sensory and motor exams grossly normal. Skin: Warm and dry, no rashes. Musculoskeletal: Neck is supple nontender. Extremities symmetrical, full range of motion. Psychiatric: Patient is oriented X 3, there is no agitation. Constitutional: Initial Vital Signs Temperature (C) 36.5 C 04/17/18 19:06 Heart Rate 75 04/17/18 19:06 Respiratory Rate 18 04/17/18 19:06 Blood Pressure 149/86 H 04/17/18 19:06 O2 Sat (%) 95 04/17/18 19:06 O2 Delivery Mode Room Air Allergies/Adverse Reactions: No Known Allergies Allergy (Unverified 04/17/18 19:09) Home Medications: Medication Instructions Recorded Atorvastatin Calcium [Lipitor 10 5 mg PO HS 02/22/18 mg (*)] Lisinopril [Zestril 10 mg (*)] 10 mg PO HS 02/22/18 Aspirin [Aspirin 81mg (*)] 81 mg PO HS 04/03/18 Cholecalciferol Vit D3 [Vitamin D3 1,000 units PO HS 04/03/18 (*)] Triamcinolone 0.1% [Triamcinolone 1 deepali TP DAILY PRN 04/03/18 0.1% Cream (*)] Warfarin Sodium [Coumadin 2.5MG 2.5 mg PO SUWE@21 04/03/18 (*)] Warfarin Sodium [Coumadin 5MG (*)] 5 mg PO MOTUTHFRSA@21 04/03/18 Medical Decision Making - Diagnostics EKG Interpretation: EKG interpreted by me shows normal sinus rhythm that is not paced. Left axis deviation. QRS shows right bundle branch block and left anterior fascicular block. There is significant T-wave inversion in the precordial leads. No arrhythmia. The rate is 71 This EKG shows significantly more T-wave inversion then previous EKG 04/03/2018 Imaging Results: Imaging Impressions Chest X-Ray 04/17/18 19:27 Impression: 1. No evidence of acute intrathoracic pathology. 2. Resolved tiny left effusion. Chest x-ray interpreted by me shows no pneumonia or pneumothorax Procedures: IV normal saline, monitor ED Course/Re-evaluation: On serial evaluations patient is stable I a discussed EKG, lab, imaging studies with the patient and his . Patient has EKG changes and chest pain. He has an elevated D-dimer. I recommended admission. They expressed understanding and agreement I consulted and discussed the case with Dr. Healy for Cardiology who will see the patient in consultation I consulted and discussed case with Dr. Kyara alvarado, hospitalist who agrees to the admission. Dr. Kyara meehan will wait on the CT angiogram as the patient is anticoagulated and it may not change agent. Differential Diagnosis: I considered acute coronary syndrome, pneumothorax. Patient has EKG changes with chest pain. - Data Points Laboratory Results: Laboratory Results 04/17/18 19:30 04/17/18 19:30 04/17/18 04/17/18 04/17/18 20:13 19:30 19:30 WBC RBC Hgb Hct MCV MCH MCHC RDW Plt Count MPV Neut % (Auto) Lymph % (Auto) Hubbard % (Auto) Eos % (Auto) Baso % (Auto) Nucleat RBC Rel Count Absolute Neuts (auto) Absolute Lymphs (auto) Absolute Monos (auto) Absolute Eos (auto) Absolute Basos (auto) Absolute Nucleated RBC Immature Gran % Immature Gran # D-Dimer 0.92 ug/mLFEU H ug/mLFEU (0.00-0.50) Sodium 144 mEq/L mEq/L (135-145) Potassium 4.2 mEq/L mEq/L (3.3-5.0) Chloride 109 mEq/L mEq/L (97-110) Carbon Dioxide 23 mEq/l mEq/l (22-31) Anion Gap 12 mEq/L mEq/L (8-16) BUN 21 mg/dL mg/dL (7-23) Creatinine 0.9 mg/dL mg/dL (0.7-1.3) Estimated GFR > 60 Glucose 110 mg/dL H mg/dL (70-100) Calcium 9.1 mg/dL mg/dL (8.5-10.4) POC Troponin I 0.00 ng/mL ng/mL (0.00-0.08) 04/17/18 19:30 WBC 7.64 10^3/uL 10^3/uL (3.80-9.50) RBC 4.20 10^6/uL L 10^6/uL (4.40-6.38) Hgb 13.2 g/dL L g/dL (13.7-17.5) Hct 38.5 % L % (40.0-51.0) MCV 91.7 fL fL (81.5-99.8) MCH 31.4 pg pg (27.9-34.1) MCHC 34.3 g/dL g/dL (32.4-36.7) RDW 13.6 % % (11.5-15.2) Plt Count 242 10^3/uL 10^3/uL (150-400) MPV 9.8 fL fL (8.7-11.7) Neut % (Auto) 67.4 % % (39.3-74.2) Lymph % (Auto) 16.6 % % (15.0-45.0) Hubbard % (Auto) 8.0 % % (4.5-13.0) Eos % (Auto) 6.5 % % (0.6-7.6) Baso % (Auto) 1.2 % % (0.3-1.7) Nucleat RBC Rel Count 0.0 % % (0.0-0.2) Absolute Neuts (auto) 5.15 10^3/uL 10^3/uL (1.70-6.50) Absolute Lymphs (auto) 1.27 10^3/uL 10^3/uL (1.00-3.00) Absolute Monos (auto) 0.61 10^3/uL 10^3/uL (0.30-0.80) Absolute Eos (auto) 0.50 10^3/uL H 10^3/uL (0.03-0.40) Absolute Basos (auto) 0.09 10^3/uL 10^3/uL (0.02-0.10) Absolute Nucleated RBC 0.00 10^3/uL 10^3/uL (0-0.01) Immature Gran % 0.3 % % (0.0-1.1) Immature Gran # 0.02 10^3/uL 10^3/uL (0.00-0.10) D-Dimer Sodium Potassium Chloride Carbon Dioxide Anion Gap BUN Creatinine Estimated GFR Glucose Calcium POC Troponin I Medications Given: Discontinued Medications Sodium Chloride (Ns) 500 mls @ 1,000 mls/hr IV EDNOW ONE PRN Reason: Protocol Stop: 04/17/18 22:04 Last Admin: 04/17/18 21:55 Dose: 500 mls Point of Care Test Results: Chemistry 04/17/18 20:13 POC Troponin I 0.00 ng/mL ng/mL (0.00-0.08) Departure - Departure Disposition: [facility] Inpatient Acute Clinical Impression: Chest pain Qualifiers: Chest pain type: unspecified Qualified Code(s): R07.9 - Chest pain, unspecified Condition: Fair
[2018-04-17 22:30] LABS: INR 2.09 (0.83-1.16); PROTIME(PATIENT) 23.5 SEC (12.0-15.0)
--- NOTE | 2018-04-17 22:46 | GHP ---
[f rep st] HISTORY AND PHYSICAL DATE OF ADMISSION: 04/17/2018 CHIEF COMPLAINT: Chest pain. HISTORY OF PRESENT ILLNESS: This is an 82-year-old man, who had a pacemaker placed 2 weeks ago who p resents with chest pain. This is described as a substernal bruising type chest discomfort. It has a pleuritic component to it that he feels in his lower neck. It is not at the pacer site. He did ini tially have pain there. However, that resolved. It is not associated with activity. It is not eden viated with rest. This started about a day and half ago. He has a history of DVT which occurred in 2012 as well as 2016. He is on warfarin. He received vitamin K yoni-procedurally and has been back on warfarin. He is not sure what his most recent INR has been. He notes that his left leg is swolle n. However, it has been persistently swollen. He does not think that it is any different. The swel ling began when he had his DVT. He had his pacer placed for complete heart block. PAST MEDICAL/SURGICAL HISTORY: 1. Complete heart block, status post pacemaker placement. 2. Recurrent DVT in 2011 and 2016. 3. Hypertension. 4. Hyperlipidemia. PAST SURGICAL HISTORY: 1. Appendectomy. 2. Hemorrhoidectomy. 3. Bilateral cataract extraction. FAMILY HISTORY: Both parents had vascular disease. SOCIAL HISTORY: He lives at [facility]. He does not smoke and occasionally drinks. REVIEW OF SYSTEMS: A 10-point review of systems is conducted and is negative except per HPI. PHYSICAL EXAM: VITAL SIGNS: Blood pressure 138/100, heart rate 72, respiration rate 16, saturating 94% on room air. Temperature is 36.5. GENERAL: The patient is a pleasant man who is resting comfor tably in no acute distress. HEENT: Normocephalic, atraumatic. CARDIOVASCULAR: He has a regular ra te and rhythm. I do not appreciate any murmurs, rubs, or gallops. There is no JVD. CHEST: Recent pacemaker placement with Steri-Strips. There is no significant ecchymosis around the incision site. PULMONARY: He is breathing comfortably. He is in no acute distress. His lungs are clear bilateral ly. ABDOMEN: Soft, nontender, nondistended. SKIN: No rash. : No Tello. NEUROLOGIC: He is al ert and oriented x3. He is moving all extremities. EXTREMITIES: The left lower extremity with 1+ l ower extremity pitting edema. LABS: Basic metabolic panel is normal. Initial troponin is negative. D-dimer 0.9. Hemoglobin is 1 3. DATA: 1. I discussed this with Dr. Monroe. We will admit to PCU. 2. I personally viewed and interpreted his chest x-ray. This shows a dual lead pacemaker. He has a normal heart size. There is no vascular congestion. 3. EKG, which I personally viewed and interpreted, is unpaced. He has a right bundle block morpholo gy. There are T-wave inversions in V2 through V6. IMPRESSION AND PLAN: 1. Chest pain: Would consider pulmonary embolus. INR is pending. He is on warfarin. If INR is sheehan b therapeutic, we will check a CT angiogram. If it is therapeutic, CT angiogram would not change man agement. Thus, we will just continue his warfarin. There are T-wave inversions which seem to be exp ected given the positive QRS in leads V2 through V6. He has intermittently had this pattern in the p ast on his unpaced beats, although his last EKG did show normal T-waves in those leads. Cardiology w as consulted by the emergency department, given his recent pacemaker placement. 2. History of deep venous thrombosis: Check INR and continue warfarin as above. 3. Code status: He would like to be do not resuscitate. He has thought about this for a long time and understands what this implies. /[id number]/MODL
[2018-04-17] MEDS ORDERED: TRIAMCINOLONE 0.1% 15 GM CRTUBE TP PRN (23:00)
[2018-04-17] MEDS ORDERED: WARFARIN SODIUM 2.5 MG TAB PO SCH (23:01)
--- NOTE | 2018-04-18 09:06 | CPEKG ---
Heart Rate: 63 RR Interval: 952 P-R Interval: 216 QRSD Interval: 132 QT Interval: 420 QTC Interval: 430 P [place]: 74 QRS [place]: -44 T Wave [place]: -31 EKG Severity - ABNORMAL ECG - EKG Impression: SINUS RHYTHM EKG Impression: RBBB AND LAFB Electronically Signed By: Horace Monroe 18-Apr-2018 21:57:39
--- NOTE | 2018-04-18 09:55 | ECHO ---
[email or web address] [address] [address] Main: [phone] Fax: Transthoracic Echocardiogram Name: SCOTTY MAY MR#: [id number] Study Date: 04/18/2018 Study Time: 07:58 AM Date of : 1935 Age: 82 year(s) Height: 175.3 cm (69 in.) Weight: 86.64 kg (191 lb.) BSA: 2.03 m2 Gender: Male Examination: Echo Indication: Post Pacemaker CP Image Quality: Contrast: Requested by: Chavez Ramos BP: 110 mmHg/60 mmHg Heart Rate: Rhythm: Normal sinus rhythm Indication: Post Pacemaker CP Procedure Staff Reimbursement Specialist: Silvano Delaney RDCS Reading Physician: Joselyn Junior MD Requesting Provider: Conclusions: Normal size left ventricle. Normal global systolic LV function. EF is 70 %. No regional wall motion abnormality. Normal size right ventricle. There is a pacemaker in the right venticle and it appears to be perforated thru the apex of the right venticle.. No echocardiographic evidence of hemodynamic compromise. There is a small, apical pericardial effusion with echogenicty within.. There is no previous echocardiogram for comparison. Measurements: Chambers Valvular Assessment AV/MV Valvular Assessment TV/PV Normal Normal Normal Name Value Range Name Value Range Name Value Range Ao Marli (MM): 2.9 cm (2.2 cm-3.7 AV Vmax: 1.25 m/s (1 m/s-1.7 PV Vmax: 0.77 m/s (0.6 m/s-0.9 cm) m/s) m/s) IVSd (2D): 0.9 cm (0.6 cm-1.1 AV maxP mmHg ( - ) PV PGmax: 2 mmHg ( - ) cm) LVOT Vmax: 1.00 m/s (0.7 m/s-1.1 LVDd (2D): 4.3 cm (4.2 cm-5.9 m/s) cm) MV E Vmax: 0.71 m/s ( - ) LVDs (2D): 2.6 cm (2.1 cm-4 MV A Vmax: 1.04 m/s ( - ) cm) MV E/A: 0.68 ( - ) LVPWd (2D): 1.0 cm (0.6 cm-1 cm) LVEF (2D): 70 (>=54 %) Continued Measurements: Chambers Valvular Assessment AV/MV Patient: SCOTTY MAY Study Date: 04/18/2018 Page 1 of 2 07:58 AM Name Value Name Value LADs Lon.8 cm MV E' Septal: 0.04 m/s LA Area: 19.6 cm2 MV E/E' Septal: 15.80 LA Volume: 61 ml MV E/E' Lateral: 12.50 LA Volume Index: 30.0 ml/m2 Findings: Left Ventricle: Normal size left ventricle. No LV hypertrophy. Normal global systolic LV function. EF is 70 %. No regional wall motion abnormality. Diastolic dysfunction is present. . Right Ventricle: Normal size right ventricle. There is a pacemaker in the right venticle and it appears to be perforated thru the apex of the right venticle.. Left Atrium: The left atrium is normal in size. Right Atrium: The right atrium is normal in size. Mitral Valve: Mild mitral valve leaflet calcification is present. Trivial mitral valve regurgitation. Aortic Valve: Mild aortic cusp calcification is noted. No aortic valve stenosis is present. Tricuspid Valve: The tricuspid valve is normal in appearance and function. Pulmonic Valve: The pulmonic valve is normal in appearance and function. Aorta: The aorta is normal. Pericardium: No echocardiographic evidence of hemodynamic compromise. There is a small, apical pericardial effusion with echogenicty within.. (No Signature Object) Patient: SCOTTY MAY Study Date: 04/18/2018 Page 2 of 2 07:58 AM [id number]
--- NOTE | 2018-04-18 13:58 | ASMTCASEMG ---
Living Arrangements What is your living Answers: With Partner arrangement? Who do you live with? Type Of Residence What kind of residence do Answers: Apartment you live in? Discharge Plan Comments Coordination Status Comments Notes: Pts case discussed in morning rounds. Pt is a 82 y/o man admitted for chest pain. Pt will most likely d/c without any needs. No therapies ordered at this time. CM available for changes. Plan: Independent Date Signed: 04/18/2018 01:58 PM Electronically Signed By:RIGO Allen
--- NOTE | 2018-04-18 14:18 | ASMTCMCOM ---
CM Note CM Note Notes: Pts case discussed in morning rounds. PT is recommending SNF. CM met w/ pt for dispo planning. Pt is not interested in going to a SNF at this time. CM provided pt w/ senior blue book. CM to follow. Plan: TBD Date Signed: 04/18/2018 02:18 PM Electronically Signed By:RIGO Allen
--- NOTE | 2018-04-18 15:52 | HOSPPROG ---
Hospitalist Progress Note Assessment/Plan: chest pain - reassuring that pain started 2 days prior to arrival and had negative trop on admission. EKG with diffuse T wave inversion, RBBB. Echo shows possible perforation of pacer lead through apex of right ventricle. Discussed with cardiology. His pacer has not missed any beats, seems intervention risk may be more significant than conservative approach and close monitoring. 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 -repeat CXR in am -cont to follow pacer activity -cardiology following closely DVT /PE - INR therapeutic making recurrent PE unlikely. D dimer 0.92, age adjusted limited 0.84. -pharmacy to dose coumadin DNR Dispo - change to inpatient for further evaluation of pacemaker issues and chest pain Subjective: Pt feels well. Chest soreness has resolved. No CP or SOB. No fevers/chills. Taking po well. Ambulatory. Objective: Vital Signs Temp Pulse Resp BP Pulse Ox 36.5 C 60 12 144/73 H 95 04/18/18 15:42 04/18/18 15:42 04/18/18 15:42 04/18/18 15:42 04/18/18 15:42 Laboratory Results 04/18/18 06:17 04/17/18 04/18/18 04/19/18 05:59 05:59 05:59 Intake Total 750 880 Balance 750 880 PT 23.5 SEC (12.0-15.0) H 04/17/18 22:23 INR 2.09 (0.83-1.16) H 04/17/18 22:23 - Physical Exam Constitutional: no apparent distress Eyes: PERRL Ears, Nose, Mouth, Throat: moist mucous membranes Cardiovascular: regular rate and rhythym Respiratory: no respiratory distress, clear to auscultation Gastrointestinal: normoactive bowel sounds, soft, non-tender abdomen Skin: warm Musculoskeletal: full muscle strength Neurologic: AAOx3 Psychiatric: interacting appropriately ICD10 Worksheet Patient Problems: Problems Problem Status Onset Chest pain Acute Arrhythmia Acute Dizziness Acute
--- NOTE | 2018-04-18 17:16 | PDMN ---
Medical Necessity Medical necessity: change to IP; los>2mn for chest pain w/ECG changes, possible perforation of pacer lead; requires further eval of chest pain and pacemaker issues, repeat CXR, and cardiology f/u; per order and progress note 04/18/18
[2018-04-18] MEDS: LISINOPRIL 10 MG TAB PO SCH (20:08)
[2018-04-18] MEDS: WARFARIN SODIUM 5 MG TAB PO SCH (20:08)
[2018-04-18] MEDS: ASPIRIN 81 MG CHEWABLE TAB PO SCH (20:08)
[2018-04-18] MEDS: CHOLECALCIFEROL VIT D3 1,000 UNITS TAB PO SCH (20:08)
--- NOTE | 2018-04-19 09:28 | GCON ---
[f rep st] CONSULTATION HISTORY OF PRESENT ILLNESS: This is an 82-year-old male with past medical history of multiple DVTs, on chronic Coumadin, who presented 2 weeks back with paroxysmal complete heart block, which was sympt omatic, and hence, a pacemaker was put in. The patient was doing fine for 2 weeks, and he came in wi th substernal soreness, which was worse when he sat up and better when he laid down. He was having p aroxysms of this pain, and it was not continuous. He denies any fevers or chills. He has chronic le ft leg swelling. PAST MEDICAL HISTORY: Complete heart block, status post [place] pacemaker, recurrent DVT, hypertens ion, dyslipidemia. PAST SURGICAL HISTORY: Appendectomy, hemorrhoidectomy, and bilateral cataract extraction. FAMILY HISTORY: Noncontributory. SOCIAL HISTORY: Lives in [facility]. Does not smoke. Occasionally drinks. REVIEW OF SYSTEMS: Other than above, is negative. PHYSICAL EXAMINATION: VITAL SIGNS: Blood pressure 130/80, pulse of 70, respiratory rate 16. HEENT: Pupils equal, reacting to light, accommodating. CARDIOVASCULAR: S1, S2 regular. No S3. No murmu rs. ABDOMEN: Soft, nontender. No guarding or rigidity. Bowel sounds present. EXTREMITIES: Leg i s swollen. Good pulses. LABORATORY DATA: Labs are normal. X-ray checked, and it is normal and unchanged. Device checked; it shows good numbe rs with P-wave and R-wave maintained in terms of sensing and threshold, as well as impedance. Echoca rdiogram shows a question of RV lead perforation. EKG shows right bundle branch block at baseline, a nd then on occasion, he has a paced beat. The T-wave inversions noted on V2, V3, V4 are new but like ly memory T-waves. The troponins are negative. IMPRESSION AND PLAN: This is an 82-year-old male who comes in with chest pain, paroxysms of substern al soreness 2 weeks after the pacemaker implant. I have evaluated the patient's echocardiogram, as w ell as all his other numbers, and at this point in time, after talking to the surgeon, as well as [facility] bell person, we have decided to hold off on any further intervention and monitor t he patient. Other causes of his chest soreness need to be evaluated. We will keep him in-house and check his chest x-ray, video fluoroscopy, as well as a repeat device check again tomorrow. Thank you for letting us participate in the patient's care. Feel free to call us for questions. /[id number]/MODL
--- NOTE | 2018-04-19 19:50 | HOSPPROG ---
Hospitalist Progress Note Assessment/Plan: chest pain - resolved. Trops neg, EKG with diffuse T wave inversion, RBBB. Echo shows possible perforation of pacer lead through apex of right ventricle. Discussed with cardiology. His pacer has not missed any beats, seems intervention risk may be more significant than conservative approach and close monitoring. 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 -repeat CXR pers reviewed / interpreted, leads appear in appropriate position -cont to follow pacer activity -cardiology following closely, discussed with Dr. Ramos DVT /PE - INR therapeutic making recurrent PE unlikely. D dimer 0.92, age adjusted limit is 0.84. -pharmacy to dose coumadin DNR Dispo - cont inpt Subjective: Pt feels fine. Soreness in his chest has resolved. Denies abdominal pain or epigastric pain. No N/V. No fevers/chills. Objective: Vital Signs Temp Pulse Resp BP Pulse Ox 36.7 C 73 20 152/75 H 98 04/19/18 15:42 04/19/18 15:42 04/19/18 15:42 04/19/18 15:42 04/19/18 15:42 04/18/18 04/19/18 04/20/18 05:59 05:59 05:59 Intake Total 50 720 Balance 50 720 PT 23.5 SEC (12.0-15.0) H 04/17/18 22:23 INR 2.09 (0.83-1.16) H 04/17/18 22:23 - Physical Exam Constitutional: no apparent distress Eyes: PERRL Ears, Nose, Mouth, Throat: moist mucous membranes Cardiovascular: regular rate and rhythym Respiratory: no respiratory distress Gastrointestinal: normoactive bowel sounds, soft, non-tender abdomen Skin: warm Musculoskeletal: full muscle strength Neurologic: AAOx3 Psychiatric: interacting appropriately ICD10 Worksheet Patient Problems: Problems Problem Status Onset Chest pain Acute Arrhythmia Acute Dizziness Acute
[2018-04-19] MEDS ORDERED: ATORVASTATIN CALCIUM 10 MG TAB PO SCH (21:00)
[2018-04-19] MEDS: CHOLECALCIFEROL VIT D3 1,000 UNITS TAB PO SCH (21:16)
[2018-04-19] MEDS: LISINOPRIL 10 MG TAB PO SCH (21:16)
[2018-04-19] MEDS: ASPIRIN 81 MG CHEWABLE TAB PO SCH (21:16)
[2018-04-19] MEDS: WARFARIN SODIUM 5 MG TAB PO SCH (21:17)
[2018-04-20 04:19] LABS: INR 2.19 (0.83-1.16); PROTIME(PATIENT) 24.4 SEC (12.0-15.0)
[2018-04-20 08:43] VITALS: BP 157/88
--- NOTE | 2018-04-20 09:47 | ASMTCMCOM ---
CM Note CM Note Notes: Dc order received. PT/OT not ordered. Anticipate dc home independently. CM available if needs/changes. Date Signed: 04/20/2018 09:45 AM Electronically Signed By:Katie Oneil RN
--- NOTE | 2018-04-20 11:39 | ASDISCHSUM ---
Discharge Information Plan Status:Home with No Needs Medically Cleared to Leave: Discharge Date:04/20/2018 11:08 AM CM D/C Disposition:Home, Routine, Self-Care ADT D/C Disposition:Home, Routine, Self-Care Projected Discharge Date:04/20/2018 11:08 AM Transportation at D/C:Family Discharge Delay Reason: Follow-Up Date:04/20/2018 11:08 AM Discharge Slot: Final Diagnosis: Placement Information Patient Contact Information Contact Name:ANTHONY Relationship:Other Address: Work Phone: City:[place] Alternate Phone: State/Zip Code:[place] Email: Financial Information Financial Class:Medicare Primary Plan Desc:MEDICARE INPATIENT Primary Plan Number:[id number] Secondary [facility] Desc[facility] Secondary Plan Number:[id number] Assessment Information LACE LACE Length of stay for Answers: 4-6 days current admission Acuity / Level of Answers: Yes Care: Did the patient have an inpatient admission? Comorbidities - select Answers: Other Notes: Complete heart block all that apply w/ pacemaker; HTN # of Emergency department Answers: 3-4 visits in the last 6 months Score: 11 Date Signed: 04/20/2018 11:37 AM Electronically Signed By:Katie Oneil RN [facility] Initial CM Assessment Living Arrangements What is your living Answers: With Partner arrangement? Who do you live with? Type Of Residence What kind of residence do Answers: Apartment you live in? Discharge Plan Comments Coordination Status Comments Notes: Pts case discussed in morning rounds. Pt is a 82 y/o man admitted for chest pain. Pt will most likely d/c without any needs. No therapies ordered at this time. CM available for changes. Plan: Independent Date Signed: 04/18/2018 01:58 PM Electronically Signed By:RIGO Allen [facility] JAS Progress Note CM Note CM Note Notes: Pts case discussed in morning rounds. PT is recommending SNF. CM met w/ pt for dispo planning. Pt is not interested in going to a SNF at this time. CM provided pt w/ senior blue book. CM to follow. Plan: TBD Date Signed: 04/18/2018 02:18 PM Electronically Signed By:RIGO Allen [facility] CM Progress Note CM Note CM Note Notes: Dc order received. PT/OT not ordered. Anticipate dc home independently. CM available if needs/changes. Date Signed: 04/20/2018 09:45 AM Electronically Signed By:Katie Oneil RN Intervention Information Intervention Type:*OCONNOR-Signed Date of Service:04/18/2018 10:31 AM Patient Type:Observation Staff Member:Cheyenne Lima Hours: Discipline: Severity: Comment: Intervention Type:*IM-Signed Date of Service:04/20/2018 09:53 AM Patient Type:Inpatient Staff Member:LORENA Oneil Courtney Hours: Discipline: Severity: Comment:
--- NOTE | 2018-04-20 11:44 | GDS ---
[f rep st] DISCHARGE SUMMARY DISCHARGE DIAGNOSES: 1. Chest discomfort, resolved. 2. Heart block, status post pacemaker placement with possible lead malposition, though pacemaker is working correctly. 3. Deep vein thrombosis/pulmonary embolism, with a therapeutic INR. CONSULTANTS: Dr. Chavez Ramos, cardiology. HISTORY: For details, please see history and physical dated April 17, 2018. In brief, the patient is an 82-year-old male with a history of heart block, who underwent pacemaker placement 2 weeks ago, pr esented to the emergency department with chest discomfort. He describes this as a soreness in the sheehan bsternal region. He was admitted to the hospital for further evaluation. HOSPITAL COURSE: Patient was admitted to the cardiac telemetry unit. His INR is therapeutic. Thus, CTA was deferred despite his mildly elevated INR. It is noted his age-adjusted INR is 0.84; thus, h is INR of 0.29 is minimal elevation. He is continued on his anticoagulation. Echocardiogram was performed and revealed an ejection fraction of 70% with no wall motion abnormality . Pacemaker in the right ventricle was noted to be possibly perforated in the apex of the right vent ricle, but no evidence of hemodynamic compromise. His pacemaker was working appropriately, and it wa s thought the risk of revision was significant, and thus, conservative management and observation wer e pursued. The patient's symptoms have resolved. He continued to have normal functioning pacemaker. His vital signs remained stable. He will have close followup with Cardiology on discharge. DISPOSITION: Patient is discharged home in stable condition. FOLLOWUP: 1. Dr. Chavez Rmaos, [facility]. 2. Dr. Carly Stewart, primary care. DISCHARGE MEDICATIONS: Please see BFKW for completed outpatient medication list. He will contin ue all outpatient medications as previously prescribed, including aspirin 81 mg p.o. q.h.s., Coumadin 5 mg Sunday, Sunday, , Sunday, Sunday, and 2.5 mg Sunday, Sunday, atorvastatin 5 mg p. o. Sunday, Sunday, Sunday, lisinopril 10 mg p.o. q.h.s., vitamin D, and triamcinolone. /[id number]/MODL
--- NOTE | 2018-04-20 13:14 | ECHO ---
[email or web address] [place] [id number] Main: [phone] Fax: Transthoracic Echocardiogram Name: SCOTTY MAY MR#: [id number] Study Date: 04/20/2018 Study Time: 08:17 AM Date of : 1935 Age: 82 year(s) Height: 175.3 cm (69 in.) Weight: 86.18 kg (190 lb.) BSA: 2.02 m2 Gender: Male Examination: Limited Echo Indication: Eval for pericardial effusion/hx recent pacer Image Quality: Contrast: Requested by: Yang Staley BP: / Heart Rate: Rhythm: Indication: Eval for pericardial effusion/hx recent pacer Procedure Staff Yarn Dyer: Gi Caruso [facility] Reading Physician: Scotty Tucker MD Requesting Provider: Conclusions: Normal global systolic LV function. Trivial pericardial effusion. No previous available Measurements: Chambers Valvular Assessment AV/MV Valvular Assessment TV/PV Normal Normal Normal Name Value Range Name Value Range Name Value Range Continued Measurements: Findings: Left Ventricle: Normal global systolic LV function. Pericardium: Trivial pericardial effusion. Pericardial effusion appears to have decreased since the echo of 04/18.. (No Signature Object) Patient: SCOTTY MAY Study Date: 04/20/2018 Page 1 of 1 08:17 AM [id number]
== END 2018-04-20 11:08 | disposition home or self-care (01) | DRG 313 ==
LOC: F2W 22:17 → OBSVTOIN 04-18 15:50
PROVIDERS: ADMIT Student in an Organized Health Care Education/Training Program; ATTEND Student in an Organized Health Care Education/Training Program
DX: R07.9 Chest pain, unspecified (principal); T82.120A Displacement of cardiac electrode, initial encounter; T82.190A Other mechanical complication of cardiac electrode, initial encounter; I10 Essential (primary) hypertension; E78.5 Hyperlipidemia, unspecified; Z86.718 Personal history of other venous thrombosis and embolism; Z79.01 Long term (current) use of anticoagulants; Z95.0 Presence of cardiac pacemaker; Z87.891 Personal history of nicotine dependence; Z66 Do not resuscitate
CPT/HCPCS: 84484-PO; G0378; Q9967

== ENCOUNTER → 2018-10-28 | Outpatient (CLI) | payer OTHER, BC | END | disposition home or self-care (01) | LOC: FIMAGING 11:08 | PROVIDERS: ATTEND Family Medicine | DX: M79.89 Other specified soft tissue disorders (principal); Z79.01 Long term (current) use of anticoagulants ==